=== PATIENT | male | born 1990 | race Asian ===

== ENCOUNTER 2016-12-22 21:45 | Emergency (ER) | payer OTHER ==
[2016-12-22 21:54] VITALS: TEMP 97.9
[2016-12-22] MEDS ORDERED: TDAP ADULT 0.5 ML INJ (BOOSTRIX) IM ONE (21:59)
--- NOTE | 2016-12-22 23:31 | EDPHY ---
H & P Time Seen by Provider: 12/22/16 22:00 HPI/ROS: CHIEF COMPLAINT: left hand laceration HISTORY OF PRESENT ILLNESS: 26-year-old male presents emergency department with a laceration to the lateral aspect of his left hand from a razor blade. Tetanus is up-to-date, no numbness or tingling in his hand. Denies other complaints. Smoking Status: Never smoked Physical Exam: GEN: Awake, alert, oriented, no acute distress RESP: nl resp effort MSK: Left hand with full flexion and extension at MCP joints and wrist, sensation intact to light touch SKIN: 2 cm superficial laceration to lateral aspect of left hand lateral to his pisiform. Constitutional: Initial Vital Signs Temperature (C) 36.6 C 12/22/16 21:51 Heart Rate 81 12/22/16 21:51 Respiratory Rate 14 12/22/16 21:51 Blood Pressure 101/91 H 12/22/16 21:51 O2 Sat (%) 95 12/22/16 21:51 O2 Delivery Mode Room Air Allergies/Adverse Reactions: tinidazole Allergy (Verified 12/22/16 21:51) Home Medications: Medication Instructions Recorded NK [No Known Home Meds] 12/22/16 MDM/Departure - MDM Procedures: Procedure: Laceration repair. Verbal consent was obtained from the patient. The 2 cm laceration on the left hand was anesthetized using add this 1% lidocaine with epinephrine. The wound was carefully irrigated by the emergency department land mobile radio technician. Next, the wound was prepped and draped in sterile fashion and explored to its base with a gloved finger. There were no deep structures involved. No tendon injury was identified. No vascular injury was identified. No foreign bodies were identified. The wound was repaired with 5.0 Prolene, 7. Simple interrupted sutures. The wound repair was simple. The procedure was performed by myself. Tetanus and antibiotic status were addressed. Medications Given: Discontinued Medications Diphtheria/Tetanus/Acell Pertussis (Boostrix) 0.5 ml IM .ONCE ONE Stop: 12/22/16 22:00 Last Admin: 12/22/16 22:13 Dose: 0.5 ml - Depart Disposition: Home, Routine, Self-Care Clinical Impression: Laceration of left hand Qualifiers: Encounter type: initial encounter Qualifier Code: (S61.412A) Laceration without foreign body of left hand, initial encounter Condition: Good Instructions: Laceration (ED), Care For Your Stitches (ED) Additional Instructions: Return to the emergency department in 12-14 days for suture removal, return sooner for any signs of infection.
[2016-12-22 23:46] VITALS: BP 110/70; PULSE 80; RESP 16; O2SAT 94
== END 2016-12-22 23:46 | disposition home or self-care (01) ==
PROC: 0HQGXZZ Repair Left Hand Skin, External Approach (ICD-10-PCS; principal; 2016-12-22)
DX: S61.412A Laceration without foreign body of left hand, initial encounter (principal); Z23 Encounter for immunization; W26.8XXA Contact with other sharp object(s), not elsewhere classified, initial encounter